=== PATIENT | female | born 1930 | race Caucasian/White ===

== ENCOUNTER 2018-07-17 02:15 | Emergency (ER) | payer MEDICARE, BC ==
[2018-07-17] MEDS ORDERED: Lidocaine 1% 20 ML MDV INJECT ONE (02:58)
--- NOTE | 2018-07-17 03:45 | EDM.PDOC ---
ED HPI GENERAL MEDICAL PROBLEM - General Chief Complaint: Head Injury Stated Complaint: HEAD LACERATION THAT WILL NOT STOP BLEEDING Time Seen by Provider: 07/17/18 02:30 Source of Information: Reports: Patient History Limitations: Reports: No Limitations - History of Present Illness INITIAL COMMENTS - FREE TEXT/NARRATIVE: Patient reports suffering a mechanical fall immediately [employer], striking the LEFT side of her head against furniture. She denies syncope, LOC, weakness, confusion , other concerns or complaints. She is anticoagulated d/t hx of DVT. Onset: Today, Sudden Onset Date: 07/17/18 Location: Reports: Head, Upper Extremity, Left Associated Symptoms: Reports: No Other Symptoms - Related Data Allergies Allergy/AdvReac Type Severity Reaction Status Date / Time acetaminophen Allergy Cannot Verified 07/17/18 03:35 [From Contac Cold-Flu Day Remember and Night] banana Allergy Cannot Verified 07/17/18 03:35 Remember chlorpheniramine Allergy Cannot Verified 07/17/18 03:35 [From Contac Cold-Flu Day Remember and Night] epinephrine Allergy Cannot Verified 07/17/18 03:35 Remember niacin Allergy Cannot Verified 07/17/18 03:35 Remember oxymetazoline HCl Allergy Cannot Verified 07/17/18 03:35 [From Jodee] Remember pheniramine maleate Allergy Cannot Verified 07/17/18 03:35 [From Jodee] Remember phenylephrine HCl Allergy Cannot Verified 07/17/18 03:35 [From Contac Cold-Flu Day Remember and Night] procaine HCl [From Novocain] Allergy Cannot Verified 07/17/18 03:35 Remember pseudoephedrine HCl Allergy Cannot Verified 07/17/18 03:35 [From Jodee] Remember BANANAS Allergy Cannot Uncoded 07/17/18 03:35 Remember Home Meds: Home Meds Aspirin [Halfprin] 81 mg PO DAILY 05/24/15 [History] Cetirizine [ZyrTEC] 10 mg PO DAILY 05/24/15 [History] Cholecalciferol (Vitamin D3) [Vitamin D3] 5,000 units PO DAILY 05/24/15 [History ] Estradiol 0.5 mg PO DAILY 05/24/15 [History] Levothyroxine Sodium [Synthroid] 75 mcg PO DAILY 05/24/15 [History] Metoprolol Succinate [Toprol XL] 25 mg PO BID 05/24/15 [History] Omeprazole 20 mg PO DAILY 05/24/15 [History] guaiFENesin [Mucinex] 600 mg PO DAILY 05/24/15 [History] Biotin 5,000 mcg PO DAILY 02/13/16 [History] Magnesium 250 mg PO DAILY 02/13/16 [History] traMADol [Ultram] 50 mg PO Q4H PRN #30 02/22/16 [Rx] Docusate Sodium [Colace] 100 mg PO DAILY 05/20/16 [History] Past Medical History HEENT History: Reports: Allergic Rhinitis, Cataract, Impaired Vision, Sinusitis Cardiovascular History: Reports: High Cholesterol, Hypertension Respiratory History: Reports: SOB Genitourinary History: Reports: Chronic Renal Insuffiency, Renal Calculus, Other (See Below) Other Genitourinary History: frequency Musculoskeletal History: Reports: Arthritis, Gout, Osteoarthritis, Osteoporosis Neurological History: Reports: Other (See Below) Other Neuro History: confusion Endocrine/Metabolic History: Reports: Hypothyroidism, Multinodular Thyroid, Osteopenia, Vitamin D Deficiency Oncologic (Cancer) 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 Denies: Neck Pain, Shoulder Pain, Back Pain, Hand Pain, Leg Pain, Foot Pain, Joint Swelling, Muscle Pain, Muscle Stiffness Skin: Reports: Other (reports laceration to LEFT elbow and LEFT side of head) Neurological: Denies: Confusion, Dizziness, Headache, Numbness, Paresthesia, Syncope, Tingling, Tremors, Trouble Speaking, Difficulty Walking, Weakness, Change in Speech ED EXAM, HEAD INJURY - Physical Exam Exam: See Below Exam Limited By: No Limitations General Appearance: Alert, WD/WN, No Apparent Distress Head: Scalp Lacerations, Active Bleeding, Other (approx 2.5 cm laceration to the LEFT side of the head, in the medial parietal area). No: Vigil's Sign, Facial Abrasions, Facial Ecchymosis, Facial Lacerations, Facial Tenderness, Raccoon Eyes Nexus Criteria: No: Posterior, Midline Cervical Tenderness, Evidence of Intoxication, Altered Level of Consciousness, Focal Neurological Deficit, Painful Distraction Injuries Eyes: Bilateral Eye: EOMI, PERRL Ears: Normal External Exam Nose: Normal Inspection Throat/Mouth: Normal Inspection Neck: Non-Tender, Full Range of Motion, Normal Alignment, Normal Inspection Respiratory: No Respiratory Distress, Lungs Clear, Normal Breath Sounds, No Accessory Muscle Use, Chest Non-Tender Cardiovascular: Normal Peripheral Pulses, Regular Rate, Rhythm, No Edema GI/Abdominal Exam: Soft, Non-Tender Back Exam: Normal Inspection, Full Range of Motion Extremities: Normal Capillary Refill, Other (approx 1 cm laceration to the LEFT olecranon) Neurologic: No Motor/Sensory Deficits, Alert, Normal Mood/Affect, Oriented x 3 Skin: Normal Color, Warm/Dry, Other (see MSK and HEAD for further) - [place] Coma Score Best Eye Response (Joselo): (4) Open Spontaneously Best Verbal Response (Joselo): (5) Oriented Best Motor Response ([place]): (6) Obeys Commands ED LACERATION/WOUND & ANAYA PROC - Laceration/Wound Repair Left Medial Head Lac/wound length in cm: 2.5 Appearance: Superficial Anesthetic Type: Local Local Anesthesia - Lidocaine (Xylocaine): 1% Plain Local Anesthetic Volume: 5cc Skin Prep: Chlorhexidine (Hibiciens), Saline Exploration/Debridement/Repair: Wound Explored, Explored to Base, No Foreign Material Found Closed with: [place] # of Sutures: 4 Sterile Dressing Applied: Nurse Tetanus Status Addressed: Yes Complications: No Course - Vital Signs Last Recorded V/S: Last Vital Signs Temp 36.5 C 07/17/18 02:21 Pulse 77 07/17/18 02:21 Resp 18 07/17/18 02:21 BP 160/78 H 07/17/18 02:21 Pulse Ox 95 07/17/18 02:21 - Orders/Labs/Meds Orders: Active Orders 24 hr Category Date Time Status Elbow 2V Lt [CR] Stat Exams 07/17/18 02:24 Taken Head wo Cont [CT] Stat Exams 07/17/18 01:55 Taken EKG 12 Lead [EK] Routine Ther 07/17/18 01:59 Ordered Meds: Medications Discontinued Medications Generic Name Dose Route Start Last Admin Trade Name Freq PRN Reason Stop Dose Admin Lidocaine HCl 20 ml 11/23/18 02:58 Xylocaine 1% INJECT 07/17/18 02:59 ONETIME ONE Departure - Departure Time of Disposition: 03:55 Disposition: DC/Tfer to Acute Hospital 02 Condition: Good Clinical Impression: Subarachnoid hemorrhage - Discharge Information *PRESCRIPTION DRUG MONITORING PROGRAM REVIEWED*: Not Applicable *COPY OF PRESCRIPTION DRUG MONITORING REPORT IN PATIENT TIA: Not Applicable Instructions: Subarachnoid Hemorrhage - Problem List Review Problem List Initiated/Reviewed/Updated: Yes - My Orders Last 24 Hours: My Active Orders 07/17/18 01:55 Head wo Cont [CT] Stat 07/17/18 01:59 EKG 12 Lead [EK] Routine 07/17/18 02:24 Elbow 2V Lt [CR] Stat - Assessment/Plan Last 24 Hours: My Active Orders 07/17/18 01:55 Head wo Cont [CT] Stat 07/17/18 01:59 EKG 12 Lead [EK] Routine 07/17/18 02:24 Elbow 2V Lt [CR] Stat Assessment:: Sub arachnoid hemorrhage CT of the head reveals a sub arachnoid hemorrhage. I discussed the findings with the radiologist who read the CT and he is unable to discern if the hemorrhage is new or old. I discussed the case with Dr. Hirsch (neurosurg) of [facility] who recommends the patient be transferred to his facility for further care. Head laceration closed with josefina, see procedure note for further. Patient's daughter at bedside. Risks and benefits discussed, patient and family agree to transfer. Patient stable and resting comfortably at time of note, staff trainer monitoring. RISK AND BENEFIT OF TRANSFER The risks and benefits of transfer were discussed with patient and family RISK: MVA, WORSE CONDITION, BENEFIT: HIGHER LEVEL OF CARE NOT AVAILABLE AT THIS FACILITY Patient and family agree to transfer.
[2018-07-17] MEDS ORDERED: Diphtheria,Pertussis(Acell),Tetanus Vaccine 0.5 ML Syringe IM ONE (03:51)
[2018-07-17 06:17] VITALS: BP 123/53
== END 2018-07-17 06:25 ==
LOC: CC.ED 02:15
DX: S06.6X9A Traumatic subarachnoid hemorrhage with loss of consciousness of unspecified duration, initial encounter (principal); S01.01XA Laceration without foreign body of scalp, initial encounter; S51.012A Laceration without foreign body of left elbow, initial encounter; E78.00 Pure hypercholesterolemia, unspecified; I12.9 Hypertensive chronic kidney disease with stage 1 through stage 4 chronic kidney disease, or unspecified chronic kidney disease; N18.9 Chronic kidney disease, unspecified; E03.9 Hypothyroidism, unspecified; Z88.8 Allergy status to other drugs, medicaments and biological substances; Z91.018 Allergy to other foods; Z79.899 Other long term (current) drug therapy; Z79.82 Long term (current) use of aspirin; Z23 Encounter for immunization; W18.30XA Fall on same level, unspecified, initial encounter
CPT/HCPCS: 12001; 70450; 73070-LT; 90471; 90715; 93005; 93010; 99284; 99285

== ENCOUNTER 2021-01-11 17:29 | Emergency (ER) | payer MEDICARE, BC ==
--- NOTE | 2021-01-11 17:46 | EDM.PDOC ---
ED HPI GENERAL MEDICAL PROBLEM - General Chief Complaint: General Stated Complaint: fall-R) leg pain Time Seen by Provider: 01/11/21 17:40 Source of Information: Reports: Patient History Limitations: Reports: Altered Mental Status (dementia, [facility]) - History of Present Illness INITIAL COMMENTS - FREE TEXT/NARRATIVE: Faizan is an 89 yo female who presents to the ED via [facility] with c/o right leg pain following fall. [facility] staff patient was found back in her bed around 0615 this morning with injuries consistent with fall. She reportedly had 3 cm skin tear to right elbow area. At that time, patient c/o 2/10 pain to her right hip. No other injuries noted other than the skin tear. Patient does have dementia and resides in memory care unit, so is a poor historian. She reports she fell while going to the bathroom but was able to get herself back to bed. She denies any symptoms prior to fall, but again is a poor historian. Staff report she was at baseline mentation following fall. She is no longer on Coumadin. Do not believe she hit her head. Staff attempted to get her up around 1615 this afternoon and she was c/o 10/10 pain to her right hip. They report she would not bear weight on her RLE, so they called EMS. Palpation throughout reveals tenderness to bilateral hips and lower abdomen. She reports lower abdomen is just "uncomfortable" with palpation. Does have skin tear to right elbow. Dressing is intact with scant blood. Onset: Today Onset Date: 01/11/21 Bilateral Hip Pain Score (Numeric/FACES): 10 - Related Data Allergies Allergy/AdvReac Type Severity Reaction Status Date / Time acetaminophen Allergy Cannot Verified 01/11/21 18:12 [From Contac Cold-Flu Day Remember and Night] banana Allergy Cannot Verified 01/11/21 18:12 Remember chlorpheniramine Allergy Cannot Verified 01/11/21 18:12 [From Contac Cold-Flu Day Remember and Night] epinephrine Allergy Cannot Verified 01/11/21 18:12 Remember niacin Allergy Cannot Verified 01/11/21 18:12 Remember oxymetazoline HCl Allergy Cannot Verified 01/11/21 18:12 [From Jodee] Remember pheniramine maleate Allergy Cannot Verified 01/11/21 18:12 [From Jodee] Remember phenylephrine HCl Allergy Cannot Verified 01/11/21 18:12 [From Contac Cold-Flu Day Remember and Night] procaine HCl [From Novocain] Allergy Cannot Verified 01/11/21 18:12 Remember pseudoephedrine HCl Allergy Cannot Verified 01/11/21 18:12 [From Jodee] Remember BANANAS Allergy Cannot Uncoded 01/11/21 18:12 Remember Home Meds: Home Meds Cholecalciferol (Vitamin D3) [Vitamin D3] 25 mcg PO DAILY 05/24/15 [History] Levothyroxine Sodium [Synthroid] 88 mcg PO DAILY 05/24/15 [History] Omeprazole 20 mg PO DAILY 05/24/15 [History] Febuxostat [Uloric] 40 mg PO DAILY 07/17/18 [History] Memantine HCl [Namenda] 10 mg PO DAILY 07/17/18 [History] Pregabalin [Lyrica] 50 mg PO BID 07/17/18 [History] Torsemide 10 mg PO DAILY 07/17/18 [History] Metoprolol Tartrate 1 tab PO BID 01/11/21 [History] guaiFENesin [Guaifenesin ER] 1 tab PO Q24H PRN 01/11/21 [History] traMADol [Ultram] 50 mg PO BID PRN 01/11/21 [History] Past Medical History HEENT History: Reports: Allergic Rhinitis, Cataract, Impaired Vision, Sinusitis Cardiovascular History: Reports: High Cholesterol, Hypertension Respiratory History: Reports: SOB Genitourinary History: Reports: Chronic Renal Insuffiency, Renal Calculus, Other (See Below) Other Genitourinary History: frequency Musculoskeletal History: Reports: Arthritis, Gout, Osteoarthritis, Osteoporosis Neurological History: Reports: Other (See Below) Other Neuro History: confusion Endocrine/Metabolic History: Reports: Hypothyroidism, Multinodular Thyroid, Osteopenia, Vitamin D Deficiency Oncologic (Cancer) History: Reports: Uterine - Past Surgical History HEENT Surgical History: Reports: Cataract Surgery GI Surgical History: Reports: Cholecystectomy, Colonoscopy Social & Family History - Caffeine Use Caffeine Use: Reports: Coffee ED ROS GENERAL - Review of Systems Review Of Systems: Unable To Obtain Reason Not Obtained: Dementia, poor historian ED EXAM, GENERAL - Physical Exam Exam: See Below Exam Limited By: Altered Mental Status (dementia, at baseline) General Appearance: Alert, WD/WN, No Apparent Distress Eye Exam: Bilateral Eye: EOMI, Normal Fundi, Normal Inspection, PERRL Ears: Normal External Exam, Normal Canal, Hearing Grossly Normal, Normal TMs Nose: Normal Inspection, Normal Mucosa, No Blood Throat/Mouth: Normal Voice, Other (dry mucous membranes) Head: Atraumatic, Normocephalic. No: Facial Swelling, Facial Tenderness Neck: Normal Inspection, Supple, Non-Tender, Full Range of Motion Respiratory/Chest: No Respiratory Distress, Lungs Clear, Normal Breath Sounds, No Accessory Muscle Use, Chest Non-Tender, Decreased Breath Sounds Cardiovascular: Normal Peripheral Pulses, Regular Rate, Rhythm, No Edema, No Gallop, No JVD, No Murmur, No Rub Peripheral Pulses: 2+: Dorsalis Pedis (L), Dorsalis Pedis (R) GI/Abdominal: Normal Bowel Sounds, Soft, Pelvis Stable, Tender (mild diffuse tenderness) Back Exam: Decreased Range of Motion. No: Paraspinal Tenderness, Vertebral Tenderness Extremities: Normal Inspection, Normal Range of Motion, Non-Tender (does not complain with palpation, does c/o pain with abduction of right hip ), No Pedal Edema, Normal Capillary Refill Neurological: Alert, Oriented (to person & place), No Motor/Sensory Deficits Psychiatric: Normal Affect, Normal Mood Skin Exam: Wound/Incision (skin tear to right elbow) Course - Vital Signs Last Recorded V/S: Last Vital Signs Temp 98.6 F 01/11/21 17:44 Pulse 100 01/11/21 17:44 Resp 18 01/11/21 17:44 BP 192/98 H 01/11/21 17:44 Pulse Ox 96 01/11/21 17:44 - Orders/Labs/Meds Orders: Active Orders 24 hr Category Date Time Status Elbow 2V Rt [CR] Routine Exams 01/11/21 Stop Req Head wo Cont [CT] Routine Exams 01/11/21 Stop Req Hip Min 2V or 3V w Pelvis Rt [CR] Routine Exams 01/11/21 Taken Labs: Laboratory Tests 01/11/21 01/11/21 Range/Units 07:45 07:45 WBC 12.7 H (5.0-10.0) 10^3/uL RBC 4.81 (4.00-5.50) 10^6/uL Hgb 14.2 (12.0-16.0) g/dL Hct 44.7 (37.0-47.0) % MCV 92.9 (82.0-94.0) fL MCH 29.5 (27.0-32.0) pg MCHC 31.8 L (33.0-38.0) g/dL RDW Coeff of [place] 14.8 (11.0-15.0) % Plt Count 238 (150-400) 10^3/uL Neut % (Auto) 83.6 (35-85) % Lymph % (Auto) 8.5 L (10-55) % Casey % (Auto) 5.7 (0-16) % Eos % (Auto) 2.0 (0-5) % Baso % (Auto) 0.2 (0-3) % Neut # (Auto) 10.64 H (1.80-7.00) 10^3/uL Lymph # (Auto) 1.08 (1.00-4.80) 10^3/uL Casey # (Auto) 0.72 (0.00-0.80) 10^3/uL Eos # (Auto) 0.26 (0.00-0.45) 10^3/uL Baso # (Auto) 0.03 10^3/uL Sodium 145 (136-145) mEq/L Potassium 4.3 (3.5-5.0) mEq/L Chloride 105 (98-106) mEq/L Carbon Dioxide 29 (21-32) mmol/L BUN 40 H (7-18) mg/dL Creatinine 2.5 H (0.6-1.0) mg/dL Est Cr Clr Drug Dosing 14.20 mL/min Estimated GFR (MDRD) 18 L (>=60) mL/min Glucose 100 H (75-99) mg/dL Calcium 9.3 (8.4-10.1) mg/dL - Re-Assessments/Exams Free Text/Narrative Re-Assessment/Exam: 01/11/21 18:49 Xray negative for acute fracture. Nonspecific bowel gas pattern. Departure - Departure Time of Disposition: 18:50 Disposition: Home, Self-Care 01 Condition: Fair Clinical Impression: Unwitnessed fall, Bilateral hip pain Skin tear of elbow without complication Qualifiers: Encounter type: initial encounter Laterality: right Qualified Code(s): S51.011A - Laceration without foreign body of right elbow, initial encounter Hypertension Qualifiers: Hypertension type: essential hypertension Qualified Code(s): I10 - Essential (primary) hypertension - Discharge Information *PRESCRIPTION DRUG MONITORING PROGRAM REVIEWED*: Yes *COPY OF PRESCRIPTION DRUG MONITORING REPORT IN PATIENT TIA: Not Applicable Instructions: Skin Tear, [id number], Joint Pain, [id number] Referrals: Robert Garcia MD [Primary Care Provider] - Forms: ED Department Discharge Additional Instructions: - Increase Tramadol to every 8 hours as needed for the next 1 week - Ice or heat to affected area as needed for comfort - Recommend daily monitoring of BP. Notify PCP if continually runs elevated. - Follow up for recheck if symptoms worsen or do not seem to be improving Sepsis Event Note (ED) - Focused Exam Vital Signs: Vital Signs Temp Pulse Resp BP Pulse Ox 01/11/21 17:44 98.6 F 100 18 192/98 H 96 - Problem List & Annotations (1) Bilateral hip pain SNOMED Code(s): 87252798 Code(s): M25.551 - PAIN IN RIGHT HIP; M25.552 - PAIN IN LEFT HIP Status: Acute Current Visit: Yes (2) Skin tear of elbow without complication SNOMED Code(s): 236777356, 083291331 Code(s): S51.019A - LACERATION WITHOUT FOREIGN BODY OF UNSP ELBOW, INIT ENCNTR Status: Acute Current Visit: Yes Qualifiers: Encounter type: initial encounter Laterality: right Qualified Code(s): S51.011A - Laceration without foreign body of right elbow, initial encounter (3) Unwitnessed fall SNOMED Code(s): 3982062 Code(s): R29.6 - REPEATED FALLS Status: Acute Current Visit: Yes (4) Hypertension SNOMED Code(s): 17518897 Code(s): I10 - ESSENTIAL (PRIMARY) HYPERTENSION Status: Acute Current Visit: Yes Qualifiers: Hypertension type: essential hypertension Qualified Code(s): I10 - Essential (primary) hypertension - Problem List Review Problem List Initiated/Reviewed/Updated: Yes - My Orders Last 24 Hours: My Active Orders 01/11/21 Elbow 2V Rt [CR] Routine Head wo Cont [CT] Routine Hip Min 2V or 3V w Pelvis Rt [CR] Routine - Assessment/Plan Last 24 Hours: My Active Orders 01/11/21 Elbow 2V Rt [CR] Routine Head wo Cont [CT] Routine Hip Min 2V or 3V w Pelvis Rt [CR] Routine Assessment:: Unwitnessed fall Skin tear of right elbow Bilateral Hip Pain Plan: Xrays of right hip/pelvis negative for acute fracture. Does have old pelvic fractures as well as scoliosis. Skin tear already well dressed. Time of injury >12 hours ago. Suspect pain is related to muscle stiffness from fall. Will increase Tramadol, to add in additional dose throughout the day to be used as needed for pain. Recommend ice/heat to affected area as needed for comfort. She may bear full weight as tolerated. Recommend daily monitoring of BP at SNF. Notify PCP if continues to run elevated. Follow up with PCP if symptoms worsen or do not seem to be improving.
[2021-01-11] MEDS ORDERED: traMADol 50 MG Tab PO ONE (18:49)
[2021-01-11 19:01] VITALS: BP 172/88; PULSE 99
== END 2021-01-11 19:40 | disposition home or self-care (01) ==
LOC: CC.ED 17:29
DX: S51.011A Laceration without foreign body of right elbow, initial encounter (principal); M25.551 Pain in right hip; M25.552 Pain in left hip; I10 Essential (primary) hypertension; E78.00 Pure hypercholesterolemia, unspecified; E03.9 Hypothyroidism, unspecified; Z91.048 Other nonmedicinal substance allergy status; Z91.018 Allergy to other foods; Z88.6 Allergy status to analgesic agent; Z88.8 Allergy status to other drugs, medicaments and biological substances; Z88.5 Allergy status to narcotic agent; W18.39XA Other fall on same level, initial encounter; Y92.002 Bathroom of unspecified non-institutional (private) residence as the place of occurrence of the external cause
CPT/HCPCS: 36415; 73502; 80048; 85025; 99284; A9270

== ENCOUNTER 2021-04-30 04:35 | Emergency (ER) | payer MEDICARE, BC ==
--- NOTE | 2021-04-30 06:10 | EDM.PDOC ---
ED HPI GENERAL MEDICAL PROBLEM - General Chief Complaint: General Stated Complaint: fall with open wounds Time Seen by Provider: 04/30/21 04:40 Source of Information: Reports: Patient, EMS, [facility] Records History Limitations: Reports: Altered Mental Status (history of dementia) - History of Present Illness INITIAL COMMENTS - FREE TEXT/NARRATIVE: Faizan is an 89 year old female who presents to ER per EMS after a fall at the [facility]. Resident was found on the floor in her room, leaning against the bathroom door. Patient states she "was getting up to go have coffee with the ladies" although incident occurred around 0300. [facility] staff did not witness fall. She complained of head and neck pain. Was noted to have a hematoma to her forehead and a laceration to the back of her head. Did apply bandages and pressure but were unable to control the bleeding so EMS was called. Arrives here alert, bandages to head saturated. Not on anticoagulants. Onset: Today, Sudden Duration: Constant Location: Reports: Head, Face, Neck Quality: Reports: Ache Severity: Mild Improves with: Reports: Rest Worsens with: Reports: Movement Context: Reports: Other (same level fall) Associated Symptoms: Reports: Confusion (chronic confusion due to dementia), Headaches, Nausea/Vomiting. Denies: Chest Pain, Cough, Fever/Chills, Loss of Appetite, Shortness of Breath Treatments METAL REFINER: Reports: Cervical Collar, Dressing(s), See EMS Report - Related Data Allergies Allergy/AdvReac Type Severity Reaction Status Date / Time acetaminophen Allergy Cannot Verified 04/30/21 04:27 [From Contac Cold-Flu Day Remember and Night] banana Allergy Cannot Verified 04/30/21 04:27 Remember chlorpheniramine Allergy Cannot Verified 04/30/21 04:27 [From Contac Cold-Flu Day Remember and Night] epinephrine Allergy Cannot Verified 04/30/21 04:27 Remember niacin Allergy Cannot Verified 04/30/21 04:27 Remember oxymetazoline HCl Allergy Cannot Verified 04/30/21 04:27 [From Jodee] Remember pheniramine maleate Allergy Cannot Verified 04/30/21 04:27 [From Jodee] Remember phenylephrine HCl Allergy Cannot Verified 04/30/21 04:27 [From Contac Cold-Flu Day Remember and Night] procaine HCl [From Novocain] Allergy Cannot Verified 04/30/21 04:27 Remember pseudoephedrine HCl Allergy Cannot Verified 04/30/21 04:27 [From Jodee] Remember BANANAS Allergy Cannot Uncoded 04/30/21 04:27 Remember Home Meds: Home Meds Cholecalciferol (Vitamin D3) [Vitamin D3] 25 mcg PO DAILY 05/24/15 [History] Levothyroxine Sodium [Synthroid] 88 mcg PO DAILY 05/24/15 [History] Omeprazole 20 mg PO DAILY 05/24/15 [History] Febuxostat [Uloric] 40 mg PO DAILY 07/17/18 [History] Pregabalin [Lyrica] 50 mg PO BID 07/17/18 [History] Torsemide 10 mg PO DAILY 07/17/18 [History] Metoprolol Tartrate 1 tab PO BID 01/11/21 [History] guaiFENesin [Guaifenesin ER] 1 tab PO Q24H PRN 01/11/21 [History] traMADol [Ultram] 50 mg PO BID 01/11/21 [History] Past Medical History HEENT History: Reports: Allergic Rhinitis, Cataract, Impaired Vision, Sinusitis Cardiovascular History: Reports: High Cholesterol, Hypertension Respiratory History: Reports: SOB Genitourinary History: Reports: Chronic Renal Insuffiency, Renal Calculus, Other (See Below) Other Genitourinary History: frequency Musculoskeletal History: Reports: Arthritis, Gout, Osteoarthritis, Osteoporosis Neurological History: Reports: Other (See Below) Other Neuro History: confusion Endocrine/Metabolic History: Reports: Hypothyroidism, Multinodular Thyroid, Osteopenia, Vitamin D Deficiency Oncologic (Cancer) History: 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 Denies: Malaise, Weakness HEENT: Denies: Ear Pain, Rhinitis, Sinus Problem, Throat Pain, Vision Change Respiratory: Denies: Shortness of Breath, Cough Cardiovascular: Denies: Chest Pain, Lightheadedness GI/Abdominal: Reports: Nausea. Denies: Abdominal Pain, Vomiting : Reports: No Symptoms Musculoskeletal: Reports: Neck Pain, Back Pain (daughter states is chronic in nature) Skin: Reports: Bruising, Wound Neurological: Reports: Confusion, Pre-Existing Deficit ED EXAM, GENERAL - Physical Exam Exam: See Below Exam Limited By: Other (is pleasantly confused, states was getting up for coffee when fell forward hitting her head on the wall) General Appearance: Alert, WD/WN, Mild Distress Eye Exam: Bilateral Eye: EOMI, PERRL Ears: Normal External Exam, Normal TMs Nose: Normal Inspection, Normal Mucosa, No Blood Throat/Mouth: Normal Inspection, Normal Oropharynx Head: Normocephalic, Other (large hematoma to forehead) Neck: Normal Inspection, Tender Midline, Other (c-collar intact) Respiratory/Chest: No Respiratory Distress, Normal Breath Sounds, Crackles (bases) Cardiovascular: Regular Rate, Rhythm GI/Abdominal: Normal Bowel Sounds, Soft, Non-Tender Extremities: Normal Inspection, Pedal Edema (trace) Neurological: Alert, Oriented (oriented to person only,history of dementia), Memory Loss Recent Events Skin Exam: Ecchymosis (large forehead hematoma/bruising), Wound/Incision (large wound to posterior head-difficult to control bleeding, see procedure note) ED GENERAL MEDICAL PROCEDURES - Laceration/Wound Repair Middle Mid-Posterior Head Lac/wound length in cm: 7 Appearance: Subcutaneous, Irregular Skin Prep: Saline Exploration/Debridement/Repair: Multiple Flaps Aligned, Other (difficult to find source of bleeding due to much clotted blood to head. Did rinse several times with saline and shaved the hair. Has 7 cm Y-shaped laceration. Bleeding subsided once josefina applied.) Closed with: [place] (16 josefina applied) # of Sutures: 7 Course - Vital Signs Last Recorded V/S: Last Vital Signs Temp 98.2 F 04/30/21 04:35 Pulse 83 04/30/21 04:35 Resp 20 04/30/21 04:35 BP 172/73 H 04/30/21 04:35 Pulse Ox 93 L 04/30/21 04:35 - Orders/Labs/Meds Orders: Active Orders 24 hr Category Date Time Status Cervical Spine wo Cont [CT] Stat Exams 04/30/21 04:16 Taken Head wo Cont [CT] Stat Exams 04/30/21 04:16 Taken - Re-Assessments/Exams Free Text/Narrative Re-Assessment/Exam: 04/30/21 Patient arrived per EMS, c-collar intact. Bandages to head. Were saturated. Much clotting and matting of hair noted, difficult to find source of bleeding initially so bandages reinforced when taken to CT. Complaining of back pain while lying on CT machine. After CT completed, sat in wheelchair to better evaluate head bleeding. States back pain now gone. No palpable area of tenderness to thoracic or lumbar spine. C-Collar changed to smaller size while nurse maintaining c-spine precautions. Washed hair/scalp with saline. Did have to shave down her hair to better evaluate the wound. has 7 cm Y-shaped laceration that was bleeding but controlled after pressure and josefina applied. Patient did get nauseated with sitting up and again when lying back down on the bed. 0540- Call received from radiologist. Head CT negative. Does have C2 unstable fracture. Informed daughter who is at bedside. 0550-Contacted [facility]. Spoke with Dr. Hoffmann in Er. Agreed to accept the patient in transfer. Family informed. Discussed risks of transfer to include worsening status, vehicle crash or . Benefits of transfer include more specialized care with neurosurgeon/surgical intervention. Risks of non transfer include worsening status, paralysis or . Benefits of non transfer include care close to home and familiar environment. Family agreed to transfer. 0600-Transfer paged. Patient resting comfortably. Denies pain with lying still. C-collar intact. Oriented to person only, chronic in nature. Follows commands yet. No changes in status. Departure - Departure Time of Disposition: 06:49 Disposition: DC/Tfer to Acute Hospital 02 Condition: Serious Clinical Impression: Closed C2 fracture, Unwitnessed fall - Discharge Information *PRESCRIPTION DRUG MONITORING PROGRAM REVIEWED*: No *COPY OF PRESCRIPTION DRUG MONITORING REPORT IN PATIENT TIA: No Instructions: Unstable Cervical Spine Fracture Forms: ED Department Discharge Additional Instructions: Transfer ALS to [facility] to Dr. Hoffmann in ER. Sepsis Event Note (ED) - Evaluation Sepsis Screening Result: No Definite Risk - Focused Exam Vital Signs: Vital Signs Temp Pulse Resp BP Pulse Ox 04/30/21 04:35 98.2 F 83 20 172/73 H 93 L - My Orders Last 24 Hours: My Active Orders 04/30/21 04:16 Cervical Spine wo Cont [CT] Stat Head wo Cont [CT] Stat - Assessment/Plan Last 24 Hours: My Active Orders 04/30/21 04:16 Cervical Spine wo Cont [CT] Stat Head wo Cont [CT] Stat
[2021-04-30] MEDS: Ondansetron 4 MG/2 ML SDV IVPUSH PRN (06:51)
[2021-04-30 07:01] VITALS: BP 116/55; PULSE 74
== END 2021-04-30 07:15 ==
LOC: CC.ED 04:35
DX: S12.190A Other displaced fracture of second cervical vertebra, initial encounter for closed fracture (principal); S01.81XA Laceration without foreign body of other part of head, initial encounter; E78.00 Pure hypercholesterolemia, unspecified; I12.9 Hypertensive chronic kidney disease with stage 1 through stage 4 chronic kidney disease, or unspecified chronic kidney disease; N18.9 Chronic kidney disease, unspecified; E03.9 Hypothyroidism, unspecified; Z79.899 Other long term (current) drug therapy; Z91.018 Allergy to other foods; Z88.1 Allergy status to other antibiotic agents; Z88.4 Allergy status to anesthetic agent; Z88.8 Allergy status to other drugs, medicaments and biological substances; W18.39XA Other fall on same level, initial encounter
CPT/HCPCS: 12002; 70450; 72125; 96374; 99284; J2405